=== PATIENT | female | born 1970 | race Caucasian/White ===

== ENCOUNTER → 2016-09-05 | Outpatient (CLI) | payer BC ==
[~2016-09-05] MED LIST: FLAGYL500 MG PO; LEVAQUIN 750MG750 M1 PO
== END ==
LOC: MC.RAD 08-28 17:00
DX: Z12.31 Encounter for screening mammogram for malignant neoplasm of breast (principal)

== ENCOUNTER → 2018-05-20 | Outpatient (CLI) | payer BC | LOC: ZCOL.LAB 12:06 | DX: M79.605 Pain in left leg (principal) ==